=== PATIENT | male | born 1995 | race Caucasian/White ===

== ENCOUNTER 2017-09-01 23:36 | Emergency (ER) | payer OTHER ==
[~2017-09-01 23:36] MED LIST: ISOVUE-370 76%-LOCM 1 ML ONE
[2017-09-02 00:09] LABS: #Eosinphils 0.1 thou/uL (0.0-0.7); #Lymphocytes 3.9 thou/uL (1.20-3.40); #Monocytes 0.9 thou/uL (0.11-0.59); #Neutrophils 6.6 thou/uL (1.40-6.50); %Basophils 0.3 % (0.0-1.0); %Eosinophils 1.2 % (0.0-10.0); %Lymphocytes 33.7 % (28.0-48.0); %Monocytes 7.4 % (0.0-4.0); %Neutrophils 57.4 % (31.0-61.0); Hemoglobin 16.1 g/dL (14.0-18.0); Mean Corpuscular HGB CONC 33.4 g/dL (32.0-36.0); Mean Corpuscular Volume 92.8 fl (77.0-87.0); Mean Platelet Volume 7.2 fL (7.4-10.4); Platelet Count 342 thou/uL (130-400); RBC Distribution Width 11.9 % (11.5-14.5); Red Blood Cell (RBC) Count 5.21 mill/uL (4.00-5.20); White Blood Cell (WBC) Count 11.5 thou/uL (4.8-10.8)
[2017-09-02 00:42] LABS: ALT (SGPT) 46 U/L (8-55); AST (SGOT) 36 U/L (5-34); Albumin 4.5 g/dL (3.5-5.0); Alkaline Phosphatase 102 U/L (Less than 750); Anion Gap 14 mmol/L (10-20); BUN (Urea Nitrogen) 17 mg/dL (8.9-20.6); Bilirubin, Total 0.6 mg/dL (0.2-1.2); Calc. Creatinine Clearance 0 mL/min (70-130); Calcium 9.2 mg/dL (7.8-10.44); Carbon Dioxide 24 mmol/L (22-29); Chloride 106 mmol/L (98-107); Estimated GFR-MDRD 56; Globulin 3.3 g/dL (2.4-3.5); Glucose 100 mg/dL (70-105); Potassium 4.1 mmol/L (3.5-5.1); Protein, Total 7.8 g/dL (6.0-8.3); Sodium 140 mmol/L (136-145)
[2017-09-02] MEDS ORDERED: Ketorolac Tromethamine 30 MG/ML VIAL ONE (02:02)
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
== END 2017-09-02 02:53 | disposition home or self-care (01) ==
LOC: ERS 23:36
DX: S32.029A Unspecified fracture of second lumbar vertebra, initial encounter for closed fracture (principal); S32.059A Unspecified fracture of fifth lumbar vertebra, initial encounter for closed fracture; T14.8XXA Other injury of unspecified body region, initial encounter; F41.9 Anxiety disorder, unspecified; V49.9XXA Car occupant (driver) (passenger) injured in unspecified traffic accident, initial encounter
CPT/HCPCS: 71260; 72125; 74177; 80053; 85025; 96361; 96374; J1885

== ENCOUNTER 2017-09-25 12:54 | Outpatient (CLI) | payer OTHER ==
--- NOTE | 2017-09-25 13:32 | RAD ---
FRONTAL AND LATERAL IMAGING OF LUMBAR SPINE: Date: 09/02/17 COMPARISON: None. HISTORY: Bilateral L5 pars defects noted on 09/02/17 CT exam. FINDINGS: Vertebral body height and alignment appears within normal limits. Subtle evidence of bilateral L5 par s defects noted. IMPRESSION: L5 pars defects with no acute fracture or anterolisthesis. POS: [facility]
== END 2017-09-25 12:55 | disposition home or self-care (01) ==
LOC: TBSIIMAG 12:54
PROVIDERS: ATTEND Neurological Surgery
DX: S32.009A Unspecified fracture of unspecified lumbar vertebra, initial encounter for closed fracture (principal)
CPT/HCPCS: 72100

== ENCOUNTER 2017-10-30 14:11 | Outpatient (CLI) | payer OTHER ==
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
== END 2017-10-30 14:12 | disposition home or self-care (01) ==
LOC: TBSIIMAG 14:11
PROVIDERS: ATTEND Neurological Surgery
DX: S22.009A Unspecified fracture of unspecified thoracic vertebra, initial encounter for closed fracture (principal); S22.008A Other fracture of unspecified thoracic vertebra, initial encounter for closed fracture
CPT/HCPCS: 72131

== ENCOUNTER 2018-09-21 18:34 | Emergency (ER) | payer OTHER, SELFPAY ==
[2018-09-21 19:25] LABS: Bilirubin Negative (Negative); Blood, Urine Negative (Negative); Clarity CLEAR (Clear); Glucose, Urine (Dipstick) Negative (Negative); Leukocyte Negative (Negative); Nitrite Negative (Negative); Protein, Urine (Dipstick) Negative (Neg-Trace); Specific Gravity, Urine 1.018 (1.002-1.036)
--- NOTE | 2018-09-21 19:38 | ULT ---
TESTICULAR ULTRASOUND: 09/21/18 HISTORY: Testicular pain. History of an undescended left testicle at which was surgically remedied. Real time imaging of the right and left testis were performed. Right testicle measures 3.1 cm. Left t esticle 4.7 cm in length. No testicular mass is demonstrated. Epididymal regions appear unremarkable. DOPPLER EVALUATION WITH SPECTRAL ANALYSIS: Normal flow is shown to both testes. IMPRESSION: Unremarkable testicular ultrasound. POS: [facility]
[2018-09-23 17:59] LABS: Chlam.trachomatis by PCR,Urine Not Detected (NotDetected)
== END 2018-09-21 20:27 | disposition home or self-care (01) ==
LOC: ERS 18:34
DX: N50.812 Left testicular pain (principal); R03.0 Elevated blood-pressure reading, without diagnosis of hypertension; F17.220 Nicotine dependence, chewing tobacco, uncomplicated; F41.9 Anxiety disorder, unspecified
CPT/HCPCS: 76870; 81003; 87491; 87591; 93976

== ENCOUNTER 2018-09-26 11:33 | Emergency (ER) | payer SELFPAY ==
[2018-09-26] MEDS ORDERED: Adacel (T-DAP) 0.5 ML SYRINGE ONE ×2 (11:58→13:54)
[2018-09-26] MEDS ORDERED: Acetaminophen 325 MG TAB ONE (12:02)
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
--- NOTE | 2018-09-26 12:14 | RAD ---
EXAM: XR Forearm Rt 2 View STANDARD PROVIDED CLINICAL HISTORY: Pain FINDINGS: There is no evidence for fracture or other acute osseous abnormality. Alignment appears anatomic. Re nt spaces appear preserved. IMPRESSION: No evidence for an acute osseous abnormality. If there is persistent clinical concern, conservative m anagement and follow-up imaging advised.
== END 2018-09-26 14:05 | disposition home or self-care (01) ==
LOC: ERS 11:33
DX: M25.531 Pain in right wrist (principal); M79.631 Pain in right forearm; F41.9 Anxiety disorder, unspecified; F17.220 Nicotine dependence, chewing tobacco, uncomplicated
CPT/HCPCS: 29125; 90471; 90715

== ENCOUNTER 2019-09-15 18:10 | Emergency (ER) | payer OTHER | END 2019-09-15 19:08 | disposition home or self-care (01) | LOC: ERS 18:10 | DX: R05 Cough (principal); Z20.828 Contact with and (suspected) exposure to other viral communicable diseases; F41.9 Anxiety disorder, unspecified; F17.220 Nicotine dependence, chewing tobacco, uncomplicated | CPT/HCPCS: 87635; 99283; U0003 ==